=== PATIENT | female | born 1945 | race Caucasian/White ===

== ENCOUNTER 2018-02-27 13:15 | Inpatient (IN) | payer MEDICARE, OTHER ==
[2018-02-27] VITALS (10 sets, daily range): BP systolic 122–144; BP diastolic 76–105; BMI 27.5
[~2018-02-27] VITALS: Ht 165.1 cm; Wt 79.8 kg
--- NOTE | ~2018-02-27 | CN ---
PATIENT NAME:MARIKA LORENZO MEDICAL RECORD: [id number] : 43 LOCATION:[id number] ADMIT DATE: 02/27/18 ACCOUNT: [id number] CONSULTING PHYSICIAN: SUKHDEEP CASTRO MD REFERRING PHYSICIAN: ARGENTINA BILL MD DATE OF CONSULTATION: 03/07/2018 IDENTIFYING DATA: The patient is 72 years old and she is admitted to the hospital on a voluntary basis. CHIEF COMPLAINT: Stroke. HISTORY OF PRESENT ILLNESS: The patient was admitted to the hospital 8 days ago. At that time, she had a lower GI bleed and subsequently had a pretty dense right hemispheric stroke leaving her with a pretty severe left hemiparesis. The patient has been quite confused. Her daughter from [place] has been here with her and is concerned about the patient's long-term wellbeing. She wants the evaluation because she would like to try to get guardianship or power of regulatory attorney, so that she can assist her mother. On interview, the patient is awake, alert, and cooperative, but clearly severely impaired. She tells me her date correctly, but then goes on to tell me that the current year is 0. She knows that she is in [place], but does not know why she is in the hospital. When asked about her left arm, which is flaccid and sitting on a pillow, she says there is nothing wrong with it, but when I asked her to move it, she cannot move it at all. The patient is scheduled to go to rehab in [place] today. MENTAL STATUS EXAMINATION: The patient is awake, alert, and oriented to person and place, but not to time or situation. Her mood is flat. Her affect is generally appropriate. Thought processes are circumstantial. Memory, concentration, and abstraction abilities are moderately impaired. She denies any active intent to harm herself or others as well as overt psychotic symptoms. ASSESSMENT: Vascular dementia versus delirium. PLAN: The patient has a history of alcohol abuse and cigarette smoking. This is probably a contributory factor. She is not in alcohol withdrawal right now, but certainly has seen elderly people exhibit protracted symptoms of withdrawal, lasting 2 or even 3 weeks. The patient may well have been impaired prior to the stroke. Obviously, it is impossible for me to determine that since this is my first encounter with her. What I can say definitively is that at this time, she is not capable of making reasonable informed consent decisions about her person or state. The patient's daughter, who is here seems very reasonable and capable and clearly is putting the patient's wellbeing, first tells me that she has a sister who is disabled, who is wanting to take care of the patient. Obviously, family conflict regarding who she care for mother is something beyond the scope of my consultation, I can only say that the daughter I met seemed genuinely interested in the patient and motivated to do what is best for her. Obviously, it is also impossible to say if she might clear up a little in the next few weeks while she is in rehab and sometimes dramatic progress is made and recovery of a stroke associated with rehabilitative stay. All of these things or quantities that I certainly cannot predict, I could just simply say at this time, I think she probably has a vascular dementia and not a delirium. I also am quite confident in asserting that she is not capable of making good decisions right now. CONSULT REPORT [id number] MARIKA LORENZO TRANSINT:[id number] Voice Confirmation ID: [id number] DOCUMENT ID: [id number] SUKHDEEP CASTRO MD at 1159 CC: [id number] DICTATION DATE: 03/07/18 1336 ENT SURGEON: 03/07/18 1354 DIS IN 03/07/18 [facility] [address] [place] [address]
[2018-02-27] MEDS ORDERED: ELIQUIS5 MG PO (14:47)
[2018-02-27] MEDS ORDERED: PAXIL20 MG PO (14:47)
[2018-02-27] MEDS ORDERED: NORVASC5 MG PO (14:47)
[2018-02-27] MEDS ORDERED: COLACE100 MG PO (14:48)
[2018-02-27] MEDS ORDERED: OXYBUTYNIN CHLOR5 MG PO (14:49)
[2018-02-27] MEDS ORDERED: CARAFATE1 G PO (14:49)
[2018-02-27] MEDS ORDERED: ZANTAC300 MG PO (14:49)
[2018-02-27] MEDS ORDERED: NEURONTIN600 MG PO (14:51)
[2018-02-27] MEDS ORDERED: NEURONTIN 300300 MG PO (14:51)
[2018-02-27 15:28] LABS: HEMATOCRIT 28.4 % (36.0-48.0); HEMOGLOBIN 8.7 g/dL (12-16)
[2018-02-27 15:32] LABS: INR 1.43 (0.85-1.17); PROTIME 16.9 SECONDS (11.6-15.0)
[2018-02-28] VITALS (24 sets, daily range): BP systolic 127–155; BP diastolic 75–111; Ht 165.1 cm; Wt 79.8 kg
[2018-02-28 04:39] LABS: BASOPHILS 0 % (0-2); EOSINOPHILS 0 % (0-7); HEMATOCRIT 23.4 % (36.0-48.0); IMMATURE GRANULOCYTES 0.3 % (0-5); LYMPHOCYTES 15.3 % (15-50); MCHC 30.8 g/dL (31.0-37.0); MCV 84.5 fL (80.0-100.0); MEAN PLATELET VOLUME 10.1 fL (7.4-10.4); MONOCYTES 10.1 % (2-11); NEUTROPHILS 74.3 % (40-80); PLATELET COUNT 193 10x3/uL (130-400); RBC 2.77 10x6/uL (4.00-5.40); RDW 16.9 % (11.5-14.5); WBC 9.2 10x3/uL (4.8-10.8)
[2018-02-28 04:52] LABS: HEMOGLOBIN 7.2 g/dL (12-16)
[2018-02-28 05:08] LABS: ALBUMIN 1.8 g/dL (3.4-5.0); ALKALINE PHOSPHATASE 60 U/L (46-116); ALT (SGPT) 14 U/L (10-68); BILIRUBIN - TOTAL 0.44 mg/dL (0.2-1.3); CALC OSMOLALITY 291 mosm/kg (275-300); CARBON DIOXIDE 28.1 mmol/L (21.0-32.0); CHLORIDE - SERUM 109 mmol/L (98-107); CREATININE - SERUM 0.5 mg/dL (0.6-1.3); GLUCOSE 159 mg/dL (74-106); POTASSIUM - SERUM 3.5 mmol/L (3.5-5.1); PROTEIN - SERUM 4.3 g/dL (6.4-8.2); SODIUM 143 mmol/L (136-145); UREA NITROGEN 25 mg/dL (7-18); eGFR NON AFRICAN AMERICAN > 90 mL/min (90-120)
[2018-03-01] VITALS (24 sets, daily range): BP systolic 128–174; BP diastolic 72–103
[2018-03-01 04:08] LABS: BASOPHILS 0.1 % (0-2); EOSINOPHILS 0 % (0-7); HEMATOCRIT 24.3 % (36.0-48.0); IMMATURE GRANULOCYTES 0.5 % (0-5); LYMPHOCYTES 24.8 % (15-50); MCH 25.5 pg (26.0-34.0); MEAN PLATELET VOLUME 9.7 fL (7.4-10.4); MONOCYTES 8.2 % (2-11); NEUTROPHILS 66.4 % (40-80); RBC 2.86 10x6/uL (4.00-5.40); RDW 17.3 % (11.5-14.5); WBC 10.7 10x3/uL (4.8-10.8)
[2018-03-01 04:09] LABS: HEMOGLOBIN 7.3 g/dL (12-16); PLATELET COUNT 244 10x3/uL (130-400)
[2018-03-01 04:26] LABS: ALBUMIN 2.1 g/dL (3.4-5.0); ALKALINE PHOSPHATASE 71 U/L (46-116); ALT (SGPT) 15 U/L (10-68); CALCIUM 7.5 mg/dL (8.5-10.1); CARBON DIOXIDE 25.9 mmol/L (21.0-32.0); CHLORIDE - SERUM 109 mmol/L (98-107); CREATININE - SERUM 0.4 mg/dL (0.6-1.3); GLUCOSE 169 mg/dL (74-106); POTASSIUM - SERUM 3.6 mmol/L (3.5-5.1); SODIUM 143 mmol/L (136-145); eGFR NON AFRICAN AMERICAN > 90 mL/min (90-120)
[2018-03-01 04:35] LABS: CALC OSMOLALITY 290 mosm/kg (275-300); UREA NITROGEN 17 mg/dL (7-18)
[2018-03-02] VITALS (17 sets, daily range): BP systolic 127–165; BP diastolic 69–99
[2018-03-02 05:49] LABS: BASOPHILS 0.1 % (0-2); EOSINOPHILS 0.1 % (0-7); HEMATOCRIT 23.6 % (36.0-48.0); IMMATURE GRANULOCYTES 0.2 % (0-5); LYMPHOCYTES 5.8 % (15-50); MCH 25.5 pg (26.0-34.0); MCHC 30.1 g/dL (31.0-37.0); MCV 84.9 fL (80.0-100.0); MEAN PLATELET VOLUME 9.8 fL (7.4-10.4); MONOCYTES 4.4 % (2-11); NEUTROPHILS 89.4 % (40-80); PLATELET COUNT 236 10x3/uL (130-400); RBC 2.78 10x6/uL (4.00-5.40)
[2018-03-02 05:53] LABS: HEMOGLOBIN 7.1 g/dL (12-16); WBC 16.1 10x3/uL (4.8-10.8)
[2018-03-02 06:12] LABS: ALKALINE PHOSPHATASE 66 U/L (46-116); ALT (SGPT) 16 U/L (10-68); BILIRUBIN - TOTAL 0.63 mg/dL (0.2-1.3); CALCIUM 7.2 mg/dL (8.5-10.1); CARBON DIOXIDE 30.4 mmol/L (21.0-32.0); CHLORIDE - SERUM 105 mmol/L (98-107); CREATININE - SERUM 0.4 mg/dL (0.6-1.3); GLUCOSE 161 mg/dL (74-106); PROTEIN - SERUM 4.9 g/dL (6.4-8.2); SODIUM 142 mmol/L (136-145); eGFR NON AFRICAN AMERICAN > 90 mL/min (90-120)
[2018-03-02 06:22] LABS: CALC OSMOLALITY 282 mosm/kg (275-300); POTASSIUM - SERUM 2.4 mmol/L (3.5-5.1); UREA NITROGEN 5 mg/dL (7-18)
[2018-03-02] MEDS ORDERED: COREG 3.1253.125 MG PO (09:45)
[2018-03-02] MEDS ORDERED: FUROSEMIDE40 MG PO (09:51)
[2018-03-02] MEDS ORDERED: K-DUR20 MEQ PO (09:52)
[2018-03-02] MEDS ORDERED: FERRETTS324 MG PO (09:54)
[2018-03-03 04:33] VITALS: BP 140/83
[2018-03-03 07:10] LABS: BASOPHILS 0.1 % (0-2); EOSINOPHILS 0.1 % (0-7); HEMATOCRIT 23.3 % (36.0-48.0); IMMATURE GRANULOCYTES 0.3 % (0-5); LYMPHOCYTES 13.5 % (15-50); MCH 25.4 pg (26.0-34.0); MCHC 29.6 g/dL (31.0-37.0); MCV 85.7 fL (80.0-100.0); MEAN PLATELET VOLUME 9.8 fL (7.4-10.4); MONOCYTES 10.5 % (2-11); NEUTROPHILS 75.5 % (40-80); PLATELET COUNT 223 10x3/uL (130-400); RBC 2.72 10x6/uL (4.00-5.40); RDW 17.1 % (11.5-14.5)
[2018-03-03 07:20] LABS: WBC 7.1 10x3/uL (4.8-10.8)
[2018-03-03 07:24] LABS: HEMOGLOBIN 6.9 g/dL (12-16)
[2018-03-03 07:27] LABS: ALBUMIN 1.9 g/dL (3.4-5.0); ALKALINE PHOSPHATASE 60 U/L (46-116); ALT (SGPT) 14 U/L (10-68); BILIRUBIN - TOTAL 0.43 mg/dL (0.2-1.3); CALCIUM 7.2 mg/dL (8.5-10.1); CARBON DIOXIDE 31.3 mmol/L (21.0-32.0); CHLORIDE - SERUM 108 mmol/L (98-107); CREATININE - SERUM 0.4 mg/dL (0.6-1.3); GLUCOSE 164 mg/dL (74-106); PROTEIN - SERUM 4.6 g/dL (6.4-8.2); SODIUM 143 mmol/L (136-145); eGFR NON AFRICAN AMERICAN > 90 mL/min (90-120)
[2018-03-03 07:28] LABS: CALC OSMOLALITY 287 mosm/kg (275-300); UREA NITROGEN 9 mg/dL (7-18)
[2018-03-03 07:34] LABS: POTASSIUM - SERUM 2.6 mmol/L (3.5-5.1)
[2018-03-03 08:48] VITALS: BP 141/78
[2018-03-03 11:51] VITALS: BP 144/86
[2018-03-03 13:14] LABS: APPEARANCE HAZY (CLEAR); BILIRUBIN NEGATIVE (NEGATIVE); COLOR YELLOW (YELLOW); GLUCOSE NEGATIVE (NEGATIVE); KETONE NEGATIVE (NEGATIVE); NITRITE POSITIVE (NEGATIVE); PROTEIN NEGATIVE (NEGATIVE)
[2018-03-03 13:23] LABS: EPITHELIAL CELLS 0-5 /hpf (0-5); RED CELLS - URINE RARE /hpf (0-5)
[2018-03-03 13:24] LABS: BACTERIA MANY /hpf (NONE SEEN); MUCUS >1+ /lpf (NONE SEEN)
[2018-03-03 17:09] VITALS: BP 141/78
[2018-03-03 21:36] VITALS: BP 138/75
[2018-03-04 02:15] VITALS: BP 147/79
[2018-03-04 04:39] VITALS: BP 139/77
[2018-03-04 05:10] LABS: BASOPHILS 0.1 % (0-2); EOSINOPHILS 0.1 % (0-7); HEMATOCRIT 23.5 % (36.0-48.0); IMMATURE GRANULOCYTES 0.3 % (0-5); LYMPHOCYTES 14.6 % (15-50); MCH 25.1 pg (26.0-34.0); MCHC 29.4 g/dL (31.0-37.0); MCV 85.5 fL (80.0-100.0); MEAN PLATELET VOLUME 10.3 fL (7.4-10.4); MONOCYTES 7.8 % (2-11); NEUTROPHILS 77.1 % (40-80); PLATELET COUNT 235 10x3/uL (130-400); RBC 2.75 10x6/uL (4.00-5.40); RDW 17.1 % (11.5-14.5)
[2018-03-04 05:18] LABS: HEMOGLOBIN 6.9 g/dL (12-16); WBC 9.2 10x3/uL (4.8-10.8)
[2018-03-04 05:26] LABS: ALKALINE PHOSPHATASE 62 U/L (46-116); ALT (SGPT) 14 U/L (10-68); CALCIUM 7.2 mg/dL (8.5-10.1); CARBON DIOXIDE 26.6 mmol/L (21.0-32.0); CHLORIDE - SERUM 109 mmol/L (98-107); CREATININE - SERUM 0.4 mg/dL (0.6-1.3); GLUCOSE 175 mg/dL (74-106); POTASSIUM - SERUM 3.2 mmol/L (3.5-5.1); PROTEIN - SERUM 4.9 g/dL (6.4-8.2); SODIUM 143 mmol/L (136-145); eGFR NON AFRICAN AMERICAN > 90 mL/min (90-120)
[2018-03-04 05:28] LABS: CALC OSMOLALITY 288 mosm/kg (275-300); UREA NITROGEN 12 mg/dL (7-18)
[2018-03-04 09:52] VITALS: BP 144/74
[2018-03-04 14:54] VITALS: BP 128/70
[2018-03-04 18:48] VITALS: BP 137/76
[2018-03-05 01:35] VITALS: BP 145/92
[2018-03-05 04:00] VITALS: BP 145/74
[2018-03-05 06:08] LABS: BASOPHILS 0.1 % (0-2); EOSINOPHILS 0.2 % (0-7); HEMATOCRIT 23.8 % (36.0-48.0); IMMATURE GRANULOCYTES 0.4 % (0-5); LYMPHOCYTES 18.7 % (15-50); MCH 25.3 pg (26.0-34.0); MCHC 29.4 g/dL (31.0-37.0); MCV 85.9 fL (80.0-100.0); MEAN PLATELET VOLUME 10.2 fL (7.4-10.4); MONOCYTES 7.5 % (2-11); NEUTROPHILS 73.1 % (40-80); PLATELET COUNT 214 10x3/uL (130-400); RBC 2.77 10x6/uL (4.00-5.40); WBC 11.3 10x3/uL (4.8-10.8)
[2018-03-05 06:32] LABS: ALBUMIN 1.9 g/dL (3.4-5.0); ALKALINE PHOSPHATASE 66 U/L (46-116); ALT (SGPT) 15 U/L (10-68); CALC OSMOLALITY 288 mosm/kg (275-300); CALCIUM 7.7 mg/dL (8.5-10.1); CARBON DIOXIDE 26.5 mmol/L (21.0-32.0); CHLORIDE - SERUM 109 mmol/L (98-107); CREATININE - SERUM 0.4 mg/dL (0.6-1.3); GLUCOSE 164 mg/dL (74-106); POTASSIUM - SERUM 3.8 mmol/L (3.5-5.1); PROTEIN - SERUM 4.8 g/dL (6.4-8.2); SODIUM 143 mmol/L (136-145); UREA NITROGEN 13 mg/dL (7-18); eGFR NON AFRICAN AMERICAN > 90 mL/min (90-120)
[2018-03-05 09:30] VITALS: BP 147/72
[2018-03-05 13:27] VITALS: BP 138/63
[2018-03-05 15:53] VITALS: BP 121/72
[2018-03-05 20:00] VITALS: BP 133/79
[2018-03-06 04:00] VITALS: BP 121/72
[2018-03-06 07:17] LABS: HEMATOCRIT 23.9 % (36.0-48.0); MCH 25.2 pg (26.0-34.0); MCHC 29.7 g/dL (31.0-37.0); MCV 84.8 fL (80.0-100.0); MEAN PLATELET VOLUME 10.5 fL (7.4-10.4); PLATELET COUNT 230 10x3/uL (130-400); RBC 2.82 10x6/uL (4.00-5.40); RDW 17.1 % (11.5-14.5); WBC 13.4 10x3/uL (4.8-10.8)
[2018-03-06 07:24] LABS: ALKALINE PHOSPHATASE 71 U/L (46-116); ALT (SGPT) 16 U/L (10-68); CALC OSMOLALITY 282 mosm/kg (275-300); CALCIUM 7.7 mg/dL (8.5-10.1); CARBON DIOXIDE 23.9 mmol/L (21.0-32.0); CHLORIDE - SERUM 106 mmol/L (98-107); CREATININE - SERUM 0.5 mg/dL (0.6-1.3); GLUCOSE 154 mg/dL (74-106); HEMOGLOBIN 7.1 g/dL (12-16); POTASSIUM - SERUM 3.4 mmol/L (3.5-5.1); PROTEIN - SERUM 5.1 g/dL (6.4-8.2); SODIUM 139 mmol/L (136-145); eGFR NON AFRICAN AMERICAN > 90 mL/min (90-120)
[2018-03-06 07:27] LABS: UREA NITROGEN 18 mg/dL (7-18)
[2018-03-06 08:08] LABS: LYMPHOCYTES 17 % (15-50); MONOCYTES 10 % (2-11); NEUTROPHILS 71 % (40-80); PLATELET ESTIMATE NORMAL
[2018-03-06 08:09] LABS: ANISOCYTOSIS OCC; CRENATED CELLS OCC; HYPOCHROMASIA 1+; SCHISTOCYTES OCC
[2018-03-06 09:35] VITALS: BP 135/89
[2018-03-06 20:00] VITALS: BP 145/84
[2018-03-07 04:00] VITALS: BP 140/88
[2018-03-07 05:53] LABS: BASOPHILS 0.1 % (0-2); EOSINOPHILS 0.4 % (0-7); HEMATOCRIT 24.6 % (36.0-48.0); IMMATURE GRANULOCYTES 0.7 % (0-5); LYMPHOCYTES 15.4 % (15-50); MCH 24.9 pg (26.0-34.0); MCHC 29.7 g/dL (31.0-37.0); MEAN PLATELET VOLUME 10.4 fL (7.4-10.4); MONOCYTES 7.8 % (2-11); NEUTROPHILS 75.6 % (40-80); PLATELET COUNT 249 10x3/uL (130-400); RBC 2.93 10x6/uL (4.00-5.40); WBC 14.1 10x3/uL (4.8-10.8)
[2018-03-07 06:07] LABS: HEMOGLOBIN 7.3 g/dL (12-16)
[2018-03-07 06:16] LABS: ALBUMIN 2.1 g/dL (3.4-5.0); ALKALINE PHOSPHATASE 78 U/L (46-116); ALT (SGPT) 18 U/L (10-68); CALC OSMOLALITY 284 mosm/kg (275-300); CALCIUM 7.6 mg/dL (8.5-10.1); CARBON DIOXIDE 25.9 mmol/L (21.0-32.0); CHLORIDE - SERUM 107 mmol/L (98-107); CREATININE - SERUM 0.5 mg/dL (0.6-1.3); GLUCOSE 169 mg/dL (74-106); POTASSIUM - SERUM 3.4 mmol/L (3.5-5.1); PROTEIN - SERUM 5.2 g/dL (6.4-8.2); SODIUM 140 mmol/L (136-145); UREA NITROGEN 18 mg/dL (7-18); eGFR NON AFRICAN AMERICAN > 90 mL/min (90-120)
[2018-03-07 08:35] VITALS: BP 142/89
[2018-03-07] MEDS ORDERED: THERAGRAN M [BK1 TAB PO (11:38)
[2018-03-07] MEDS ORDERED: THIAMINE HCL50 MG PO (11:38)
[2018-03-07] MEDS ORDERED: NICODERM C1 PATCH .1 TRANSDERM (11:43)
[2018-03-07] MEDS ORDERED: LEVAQUIN500 MG PO (11:44)
[2018-03-07] MEDS ORDERED: LIBRIUM5 MG PO (11:44)
[2018-03-07 12:49] VITALS: BP 161/83
== END 2018-03-07 13:33 | DRG 377 ==
LOC: D.MS 13:15 → D.ICU 13:15 → D.MS 03-02 16:09
PROVIDERS: Family Medicine; Internal Medicine Nephrology
DX: K92.2 Gastrointestinal hemorrhage, unspecified (principal); R57.8 Other shock; E43 Unspecified severe protein-calorie malnutrition; I63.9 Cerebral infarction, unspecified; D62 Acute posthemorrhagic anemia; F17.203 Nicotine dependence unspecified, with withdrawal; G81.94 Hemiplegia, unspecified affecting left nondominant side; F10.231 Alcohol dependence with withdrawal delirium; N39.0 Urinary tract infection, site not specified; Z66 Do not resuscitate; I95.9 Hypotension, unspecified; I48.2 Chronic atrial fibrillation; Z79.01 Long term (current) use of anticoagulants; D69.6 Thrombocytopenia, unspecified; R13.10 Dysphagia, unspecified